=== PATIENT | male | born 1980 | race African-American/Black ===

== ENCOUNTER 2017-07-15 10:32 | Emergency (ER) | payer OTHER ==
[2017-07-15] MEDS ORDERED: Ibuprofen 200 MG TAB ONE (10:50)
== END 2017-07-15 10:56 | disposition home or self-care (01) ==
LOC: BURERS 10:32
DX: J06.9 Acute upper respiratory infection, unspecified (principal); F20.9 Schizophrenia, unspecified; F31.9 Bipolar disorder, unspecified; F17.210 Nicotine dependence, cigarettes, uncomplicated
CPT/HCPCS: 99283